=== PATIENT | female | born 1940 | race Caucasian/White ===

== ENCOUNTER 2019-07-25 02:33 | Inpatient (IN) | payer MEDICARE ==
[~2019-07-25] VITALS: Ht 160 cm; Wt 39.9 kg
[~2019-07-25 02:33] MED LIST: ACETAMINOPHEN325 M1 PO; ALPRAZOLAM 0.0.25 M1 PO; AMOXICILLIN 50500 M1 PO; AVELOX 400 MG400 MG PO; AVELOX ABC PAC400 MG; CIPROFLOXACIN500 M3 PO; COMBIVENT; CUTIVATE120 ML INH; DECADRON PO; DUONEB 2.5-0.5 M3 ML; FLEXERIL PO; MUCINEX600 MG; MUCINEX600 MG PO; NORCO 5-325 TA1 EACH PO; PERCOCET 5-3251 EACH PO; PREDNISONE 10 M10 M1; PREDNISONE 10 M10 M1 PO; PREDNISONE 20 M20 M1 PO; PRILOSEC40 MG; PRILOSEC40 MG PO; PROAIR HFA8.5 GM; SINGULAIR 10 MG10 M1 PO; VENTOLIN HFA INH8 GM IH; ZANTAC 150MG T150 M1 PO
[2019-07-25 03:15] VITALS: BP 150/55
[2019-07-25 03:17] LABS: BE 3.8 mmol/L (-2 to +3); PCO2 44.9 mmHg (35.0-45.0); pH 7.428 (7.340-7.450)
[2019-07-25 03:27] LABS: PO2 49.1 mmHg (75.0-100.0)
[2019-07-25 03:28] LABS: ABSOLUTE BASOPHILS 0.1 thou/uL (0.0-0.2); ABSOLUTE EOSINOPHILS 0.1 thou/uL (0.0-0.7); ABSOLUTE LYMPHOCYTES 3.3 thou/uL (0.8-5.3); ABSOLUTE MONOCYTES 1.8 thou/uL (0.0-1.2); ABSOLUTE NEUTROPHILS 9.6 thou/uL (1.6-8.1); BASOPHILS 0.7 %; HEMATOCRIT 50.8 % (37.0-47.0); HEMOGLOBIN 17.3 gm/dL (12.0-15.0); MCH 33.9 pg (26.0-34.0); MCV 99.8 fL (80.0-100.0); MONOCYTES 11.9 %; MPV 9.6 fl. (7.2-11.1); NUCLEATED RBCS 0 /100WBC; PLATELET COUNT* 356 thou/uL (150-400); POLYS 64.4 %; RBC 5.09 mil/uL (4.20-5.00); RDW-CV 16.2 % (10.5-14.5); WBC 14.9 thou/uL (4.0-11.0)
[2019-07-25 03:41] LABS: URINE BILIRUBIN NEGATIVE (Negative); URINE BLOOD 1+ (Negative); URINE CLARITY CLEAR; URINE COLOR YELLOW; URINE GLUCOSE-RANDOM NEGATIVE (Negative); URINE KETONES 1+ (Negative); URINE PROTEIN NEGATIVE (Negative); URINE SPECIFIC GRAVITY 1.015 (1.005-1.030)
[2019-07-25 03:54] LABS: URINE LEUKOCYTES-REFLEX 3+ (Negative); URINE NITRITE-REFLEX POSITIVE (Negative)
[2019-07-25 04:13] LABS: CALCIUM 8.6 mg/dL (8.5-10.1); CREATININE 0.5 mg/dL (0.6-1.3); POTASSIUM 3.1 mmol/L (3.5-5.1)
[2019-07-25 04:17] LABS: ALBUMIN 2.8 g/dL (3.4-5.0); MAGNESIUM 1.5 mg/dL (1.8-2.4); TOTAL BILIRUBIN 0.9 mg/dL (<0.1-1.0); TOTAL PROTEIN 6.9 g/dL (6.4-8.2)
--- NOTE | 2019-07-25 04:36 | NUR ---
REPORT OF NEGLECT FILED ONLINE WITH DEPT. OF HEALTH AND SENIOR SERVICES.
[2019-07-25 04:42] LABS: CASTS None Seen /LPF (None Seen); MUCUS 0-3 Light strn/LPF (None Seen); SQUAMOUS >10 Many /LPF (0-3)
[2019-07-25 04:43] LABS: BACTERIA-REFLEX >30 Many /HPF (None Seen); CRYSTALS None Seen /LPF (None Seen); URINE RBC 3-10 Few /HPF (0-2); URINE WBC-REFLEX >25 Many /HPF (0-5)
--- NOTE | 2019-07-25 06:33 | NUR ---
CALLED THE EMERGENCY CONTACT BRIE LEWIS TO MAKE AWARE OF PATIENT'S ADMIT. CONTACT DID NOT ANSWER, LEFT A BRIEF MESSAGE WITH PHONE NUMBER TO RETURN PHONE CALL.
[2019-07-25 07:52] VITALS: BP 140/53
[2019-07-25 11:06] VITALS: BP 116/48
--- NOTE | 2019-07-25 11:50 | EKG ---
[place] [address] ELECTROCARDIOGRAM REPORT Name: CARLEE BARBOZA Room: [place] [address] ADM IN .R.#: [id number] Admission: 07/25/19 Attend Phys: Martha Cortes, Discharge: Date of : 44 Date of Service: 07/25/19 0319 Report #: [id number] THIS REPORT FOR: //name// [facility] ED Test Date: 2019-07-25 Test Time: 03:19:36 Pat Name: CARLEE BARBOZA Department: Room: [facility] Gender: F Toll Ticket Clerk: : 1940 Requested By: Amelie Naranjo Order Number: [id number] MD: Brian Tadeo Measurements Intervals [place] Rate: 86 P: 73 AL: 148 QRS: -39 QRSD: 94 T: 62 QT: 363 QTc: 434 Interpretive Statements Sinus rhythm Left atrial enlargement artifact noted Inferior infarct, old Anterior Q waves Compared to ECG 09/21/2012 20:25:31 no change Electronically Signed On 07-25-2019 11:49:19 CDT by Brian Tadeo [email or web address] <ELECTRONICALLY SIGNED> By: Brian Tadeo MD, [facility] 07/25/19 1149 0319 0319 Brian Tadeo MD, [facility] /EPI
[2019-07-25 12:07] VITALS: BP 116/48
[2019-07-25] MEDS ORDERED: IPRAT-ALBUT 0.5-3 ML INH (15:43)
[2019-07-25 17:10] VITALS: BP 123/49
--- NOTE | 2019-07-25 19:00 | NUR ---
ASSUMED PT CARE FROM ER AROUND 1234. ASSESSMENT COMPLETED CHARTED. ABLE TO MAKE NEEDS KNOWN. MED REC COMPLETED. ON BEDREST WITH Q2 TURNS. NO C/O PAIN OR DISCOMFORT. RESTING IN BED AT THIS TIME. EATING MOST OF MEALS. WILL CONTINUE TO MONITOR.
[2019-07-25 20:00] VITALS: BP 118/53
[2019-07-26] VITALS: BP 133/52
[2019-07-26 04:00] VITALS: BP 132/53
[2019-07-26 05:37] LABS: CALCIUM 8.5 mg/dL (8.5-10.1); CREATININE 0.4 mg/dL (0.6-1.3); MAGNESIUM 1.7 mg/dL (1.8-2.4); POTASSIUM 4.3 mmol/L (3.5-5.1)
--- NOTE | 2019-07-26 07:48 | NUR ---
Shift uneventful. Pt is aox4, running SR on telemetry, respirations are even and unlabored on 2L NC. Pt is medically stable at this time.
[2019-07-26 08:00] VITALS: BP 131/55
[2019-07-26 12:00] VITALS: BP 108/45
[2019-07-26 16:22] LABS: HEMATOCRIT 46.9 % (37.0-47.0); HEMOGLOBIN 15.8 gm/dL (12.0-15.0); MCH 33.9 pg (26.0-34.0); MCHC 33.7 g/dL (28.0-37.0); MCV 100.8 fL (80.0-100.0); MPV 9.7 fl. (7.2-11.1); NUCLEATED RBCS 0 /100WBC; PLATELET COUNT* 342 thou/uL (150-400); RBC 4.65 mil/uL (4.20-5.00); RDW-CV 16.2 % (10.5-14.5); WBC 14.8 thou/uL (4.0-11.0)
--- NOTE | 2019-07-26 16:22 | NUR ---
Pt is A&O. Resides at home with her son. Pt states that she's not very independent at home, uses a walker at home and walks the best that she can. Pt reports pain in her knees with ambulation. Pt states that she hadn't taken a shower/bath in over a month. Son works 4am-7pm, he cooks breakfast before he leaves and brings dinner home, Pt eats snacks during the day. CM spoke with Mallika Reyes with [facility], will remain in contact and keep [facility] abreast of dispo. Pt in agreement with SNF, wants SNF near [place]. Following.
[2019-07-26 17:31] LABS: ABSOLUTE LYMPHOCYTES 0.3 thou/uL (0.8-5.3); ABSOLUTE NEUTROPHILS 13.5 thou/uL (1.6-8.1); PLATELET ESTIMATE ADEQUATE
--- NOTE | 2019-07-26 19:00 | NUR ---
ASSUMED PT CARE AT 0730. ASSESSMENT COMPLETED CHARTED. ABLE TO MAKE NEEDS KNOWN. RESTING IN BED MOST OF THE DAY. UP TO RECLINER FOR LUNCH. NO C/O PAIN OR DISCOMFORT. CALL LIGHT WITHIN REACH. [id number] COMPLETED CHARTED. WILL CONTINUE TO MONITOR.
[2019-07-26 20:00] VITALS: BP 117/53
[2019-07-26 23:58] VITALS: BP 151/69
[2019-07-27 04:00] VITALS: BP 147/56
--- NOTE | 2019-07-27 07:54 | NUR ---
Shift uneventful. Pt is aox4, running SR w/ PVCs on telemetry, respirations are even and unlabored on room air. Pt is medically stable at this time.
[2019-07-27 08:00] VITALS: BP 138/87
[2019-07-27 10:30] LABS: ALBUMIN 2.5 g/dL (3.4-5.0); CALCIUM 8.6 mg/dL (8.5-10.1); CREATININE 0.5 mg/dL (0.6-1.3); POTASSIUM 4.6 mmol/L (3.5-5.1); TOTAL BILIRUBIN 0.4 mg/dL (<0.1-1.0); TOTAL PROTEIN 5.9 g/dL (6.4-8.2)
--- NOTE | 2019-07-27 11:30 | NUR ---
FAXED REFERRALS TO [facility], [facility], [place], AND [facility]. WILL CONFIRM THEY RECEIVED AND BED AVAILABILITY. [facility] [phone]; [phone] [facility] [phone]; [phone] [facility] [place] [phone]; [phone] [facility] [phone]; [phone] [facility]TAKE
--- NOTE | 2019-07-27 12:04 | NUR ---
SELVIN shoe lay out planner to fax referrals to Kathy Hooks, [facility] and [facility]. Updated Mallika Reyes with [facility], will continue to keep [facility] updated [phone]. Mallika to reach out to Pt and son/dtr.
[2019-07-27 13:03] VITALS: BP 117/54
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
--- NOTE | 2019-07-27 16:35 | NUR ---
CONFIRMED WITH [facility] THAT [facility] WILLING TO TAKE THE PATIENT LONG SHE KNOWS SHE CAN'T SMOKE AT THE FACILITY. NOTIFIED SUPPLEMENTAL NURSE. [facility] [phone]; [phone]
[2019-07-27 17:20] VITALS: BP 117/48
--- NOTE | 2019-07-27 19:00 | NUR ---
ASSUMED PT CARE AT 0730. ASSESSMENT COMPLETED CHARTED. ABLE TO MAKE NEEDS KNOWN. [id number] COMPLETED CHARTED. UP WITH MAX ASSIST TO RECLINER AND BACK TO BED ONCE TODAY. PT THOUGHT DOCTOR WAS NOT COMPASSIONATE AND ASKED FOR A NEW DOCTOR. RESTING IN BED AT THIS TIME. CALL LIGHT WITHIN REACH. WILL CONTINUE TO MONITOR.
[2019-07-27 20:00] VITALS: BP 110/54
[2019-07-28 00:06] VITALS: BP 123/61; BP 123/63
[2019-07-28 04:03] VITALS: BP 138/70
--- NOTE | 2019-07-28 06:46 | NUR ---
Shift uneventful. Pt is aox4, running SR w/ PVCs, respirations are even and unlabored on room air. Pt is medically stable at this time.
--- NOTE | 2019-07-28 08:07 | CON ---
[address] [address] CONSULTATION Name: CARLEE BARBOZA Room: [address] IN M.R.#: [id number] Admission: 07/25/19 Attend Phys: Martha Cortes MD Discharge: Date of : 44 Report #: [id number] THIS REPORT FOR: //name// cc: OWEN Mike family physician/PCP OWEN - Cee family physician/PCP ~ THIS REPORT FOR: //name// CC: OWEN physician/PCP Martha Cortes DATE OF SERVICE: 07/27/2019 INFECTIOUS DISEASE CONSULTATION ATTENDING PHYSICIAN: Dr. Cortes. REASON FOR EVALUATION: Positive blood culture with Gram-positive waldemar. HISTORY OF PRESENT ILLNESS: Chart reviewed, patient examined. This is a 78-year-old woman with latter stages COPD, who was admitted through the Emergency Room on 07/25/2019 with complaints of difficulty breathing, had a dysfunctional nebulizer, has had intermittent cough. Denies any fever. Initial evaluation showed elevated lactic acid at 2.2. ABGs showed hypoxemia with pO2 of 49.1, a pCO2 of 44.9 with a pH 7.428, that was on room air. Initial white count was elevated at 14.9 with absolute lymphocyte count of 3300. Urinalysis did show marked pyuria. Lactic acid was 2.2, repeat was 1.1. Chest x-ray showed changes bilaterally, difficult to ascertain whether they are acute or chronic, perhaps, edema versus fibrosis. CT of the chest did raise question of some pneumonitis in the medial segment of the right middle lobe and the left upper lobe had some compression fractures as well. She was empirically started on ceftriaxone. At this point, she is on azithromycin. She is overall somewhat better, generally lucid. Denies any significant gastrointestinal-related complaints. ALLERGIES: None known. MEDICATIONS: Include ceftriaxone, azithromycin, temazepam, famotidine, guaifenesin, methylprednisolone, ipratropium, and albuterol inhaler. PAST MEDICAL HISTORY: As described above, COPD, compression fractures with osteoporosis, previous tonsillectomy, appendectomy, hysterectomy, previous splenectomy as a result of injury. SOCIAL HISTORY: Heavy smoker throughout her life. She is down to 1/4 pack a day, extensive ethanol use as well. [place] [address] CONSULTATION Name: CARLEE BARBOZA MARLA Room: [address] IN [facility]#: [id number] Admission: 07/25/19 Attend Phys: Martha Cortes MD Discharge: Date of : 44 Report #: [id number] FAMILY HISTORY: Noncontributory. REVIEW OF SYSTEMS: Otherwise, unremarkable 10-point review of systems. PHYSICAL EXAMINATION: GENERAL: She is chronically ill appearing, undernourished. She is sitting up. She is lucid. HEENT: Normocephalic. Extraocular muscles intact, maintained on room air. NECK: Supple. LUNGS: Scattered coarse breath sounds bilaterally. HEART: Regular, distant. Soft systolic murmur. ABDOMEN: Soft, nontender, nondistended. EXTREMITIES: No cyanosis. GENITOURINARY: Deferred. RECTAL: Deferred. LABORATORY DATA: As described above. Most recent electrolytes, sodium 141, potassium 4.6, chloride 102, bicarbonate is 36, anion gap of 3, BUN and creatinine 12 and 0.5, glucose of 101. AST of 18. Albumin of 2.5, total protein of 5.9, ALT of 13, estimated GFR 120. Blood cultures 1 out of 2 with gram-positive rods. CBC: White count of 14.8, H and H 15.8 and 46.9, platelets of 342. ASSESSMENT: Positive blood culture in a setting of patient admitted with a pneumonitis, COPD exacerbation. I suspect this is going to be a false positive. We will continue current approach as prescribed. In the event of deterioration, may add broader coverage gram positives, see how she does clinically. She is quite tenuous I suspect in the best of circumstances. Thank you. We will follow. <ELECTRONICALLY SIGNED> By: Abran Allan MD 07/28/19 0807 [id number] Allan MD /nt
[2019-07-28 12:05] VITALS: BP 131/64
--- NOTE | 2019-07-28 16:43 | NUR ---
ASSUMED PT CARE AT 0730. ASSESSMENT COMPLETED CHARTED. ABLE TO MAKE NEEDS KNOWN. NO C/O PAIN OR DISCOMFORT. UP TO RECLINER WITH 2. Q2TURN COMPLETED CHARTED. IV ABT INFUSING PER EMAR. RESTING IN BED AT THIS TIME. WILL CONTINUE TO MONITOR.
[2019-07-28 18:03] VITALS: BP 104/48
[2019-07-28 20:00] VITALS: BP 125/51
--- NOTE | 2019-07-28 20:00 | NUR ---
RECEIVED REPORT AND ASSUMED CARE OF PT, ASSESSMENT COMPLETED. PT FRAIL, BUTTOCKS EXCORIATED. O2 ON AT 2L/NC BUT PT CONSTANTLY TAKING IT OFF. TELEMETRY ON SHOWING SR. WILL CONT TO NOMITOR AND ASSIST NEEDED.
[2019-07-29] VITALS: BP 143/58
[2019-07-29 04:00] VITALS: BP 128/63
--- NOTE | 2019-07-29 06:00 | NUR ---
AWAKE FREQ DURING NIGHT. ASKING FOR FOOD AND COFFEE FREQ. ASSISTED WITH REPOSTIONING IN BED. LEGS CONTRACTURED. BUTTOCKS EXCORIATED, INCONT OF STOOL. ASSESSMENT UNCHANGED. TELEMETRY CONT TO SHOW SR. HS GOALS OF REST AND SAFETY ACHIEVED. HOURLY ROUNDING OBSERVED.
[2019-07-29 08:20] VITALS: BP 128/65
[2019-07-29] MEDS ORDERED: PREDNISONE 5 MG5 M1 PO (13:17)
[2019-07-29] MEDS ORDERED: CEFDINIR300 MG PO (13:19)
[2019-07-29] MEDS ORDERED: RESTORIL15 M1 PO (13:22)
[2019-07-29 13:39] VITALS: BP 128/65
--- NOTE | 2019-07-29 14:11 | NUR ---
cm faxed orders to danii at [facility]. pt notified of d/c to [facility] today. pt son Santos also notified. lft message for sonDemian. danii arranging transportation to include w/c and o2. transportation time at 1530. pt nurse is in agreement w/ plan. cm provided nurse w/number to call report. [phone] "[facility]."
--- NOTE | 2019-07-29 15:41 | NUR ---
ASSUSMED CARE OF PT 0730. REASSESMENT COMPLETED CHARTED. MEDICATIONS GIVEN CHARTED. KALIN CARE GIVEN. SAFTEY PRECAUTIONS UTILIZED. HOURLY ROUNDED. CARE DISCUSSED WITH CM AND PHYSICAN. CM MANAGEMENT ATTEMPTED TO CALL PTS SON WITH NO ANSWER. PT DISCHARGE TEACHING COMPLETED WITH PT, PT VERBALIZED UNDERSTANDING. PHOTO TAKEN OF PTS BOTTOM, ON CHART. REPORT CALLED TO NURSE AT [facility].
== END 2019-07-29 16:30 | DRG 871 ==
LOC: M.ERS 02:33 → M.TBA-ER 03:50 → M.2W 03:50
PROVIDERS: Internal Medicine; Personal Emergency Response Attendant; ADMIT Internal Medicine
DX: A41.9 Sepsis, unspecified organism (principal); J96.01 Acute respiratory failure with hypoxia; J44.1 Chronic obstructive pulmonary disease with (acute) exacerbation; Z68.1 Body mass index [BMI] 19.9 or less, adult; N39.0 Urinary tract infection, site not specified; M81.0 Age-related osteoporosis without current pathological fracture; F17.210 Nicotine dependence, cigarettes, uncomplicated; B35.1 Tinea unguium; B96.20 Unspecified Escherichia coli [E. coli] as the cause of diseases classified elsewhere; R63.6 Underweight; Z79.899 Other long term (current) drug therapy; Z90.710 Acquired absence of both cervix and uterus; Z90.81 Acquired absence of spleen; Z90.49 Acquired absence of other specified parts of digestive tract